=== PATIENT | female | born 1945 | race Two or more races ===

== ENCOUNTER 2020-10-18 12:29 | Emergency (ER) | payer OTHER ==
[~2020-10-18] VITALS: Ht 162.6 cm; Wt 49.9 kg
[~2020-10-18 12:29] MED LIST: AMOX1TAB12 PO
== END 2020-10-18 14:02 | disposition home or self-care (01) ==
LOC: ER 12:29
DX: S00.03XA Contusion of scalp, initial encounter (principal); W01.198A Fall on same level from slipping, tripping and stumbling with subsequent striking against other object, initial encounter; Y93.89 Activity, other specified; Y92.098 Other place in other non-institutional residence as the place of occurrence of the external cause; Y99.8 Other external cause status

== ENCOUNTER 2023-01-01 13:58 | Inpatient (IN) | payer OTHER ==
[~2023-01-01] VITALS: Ht 162.6 cm; Wt 47.6 kg
[2023-01-01] MEDS ORDERED: CHILDREN'S ASPI81 MG PO (14:26)
== END 2023-01-07 15:16 | disposition home or self-care (01) | DRG 602 ==
LOC: ER 13:58 → MEDJ 18:55
PROVIDERS: ADMIT Internal Medicine; ATTEND Internal Medicine
PROC: B54DZZZ Ultrasonography of Bilateral Lower Extremity Veins (ICD-10-PCS; principal; 2023-01-02)
PROC: BQ3DZZZ Magnetic Resonance Imaging (MRI) of Right Lower Leg (ICD-10-PCS; 2023-01-04)
DX: L03.115 Cellulitis of right lower limb (principal); A41.9 Sepsis, unspecified organism; S80.811A Abrasion, right lower leg, initial encounter; W55.01XA Bitten by cat, initial encounter; R73.03 Prediabetes
CPT/HCPCS: 73725

== ENCOUNTER 2023-05-07 21:11 | Emergency (ER) | payer OTHER ==
[~2023-05-07] VITALS: Ht 162.6 cm; Wt 45.8 kg
[~2023-05-07 21:11] MED LIST changes: +CHILDREN'S ASPI81 MG PO
== END 2023-05-07 22:34 | disposition home or self-care (01) ==
LOC: ER 21:23
DX: S91.311A Laceration without foreign body, right foot, initial encounter (principal); W26.0XXA Contact with knife, initial encounter; Y93.G3 Activity, cooking and baking; Y92.010 Kitchen of single-family (private) house as the place of occurrence of the external cause; Y99.9 Unspecified external cause status

== ENCOUNTER 2023-05-18 13:08 | Emergency (ER) | payer OTHER ==
[~2023-05-18] VITALS: Ht 157.5 cm; Wt 45.4 kg
== END 2023-05-18 15:02 | disposition home or self-care (01) ==
LOC: ER 13:08
DX: Z48.02 Encounter for removal of sutures (principal); T81.89XA Other complications of procedures, not elsewhere classified, initial encounter
CPT/HCPCS: 96372; 99284; J3490